=== PATIENT | male | born 1955 | race Caucasian/White ===

== ENCOUNTER → 2018-01-01 | Outpatient (CLI) | payer BC ==
--- NOTE | 2018-01-01 11:47 | ECHOF ---
Referral Reason:R01.1 murmur MEASUREMENTS -------- HEIGHT: 172.7 cm WEIGHT: 90.7 kg BP: 137/68 RVIDd: 3.2 cm (< 3.3) IVSd: 1.5 cm (0.6 - 1.1) LVIDd: 4.7 cm (3.9 - 5.3) LVPWd: 1.3 cm (0.6 - 1.1) IVSs: 1.7 cm LVIDs: 3.3 cm LVPWs: 1.8 cm LA Diam: 3.1 cm (2.7 - 3.8) LAESV Index (A-L): 39.16 ml/m Ao Diam: 3.2 cm (2.0 - 3.7) AV Cusp: 2.2 cm (1.5 - 2.6) EPSS: 0.5 cm MV E Ulices: 1.03 m/s MV DecT: 288 ms MV A Ulices: 1.05 m/s MV E/A Ratio: 0.98 RAP: 5.00 mmHg RVSP: 26.51 mmHg MV EF SLOPE: 75.75 mm/s (70 - 150) MV EXCURSION: 1.51 cm (> 18.000) FINDINGS -------- Sinus rhythm. This was a technically good study. The left ventricular size is normal. There is moderate concentric left ventricular hypertrophy. O verall left ventricular systolic function is normal with, an EF between 55 - 60 %. The right ventricle is normal in size. LA is moderately dilated 34-39 ml/m2 The right atrium is normal in size. The aortic valve is trileaflet and appears structurally normal. Mild mitral regurgitation is present. Mild tricuspid regurgitation present. Right ventricular systolic pressure is normal at < 35 mmHg. Trace/mild (physiologic) pulmonic regurgitation. The aortic root size is normal. Normal inferior vena cava with normal inspiratory collapse consistent with estimated right atrial pre ssure of 5 mmHg. The inferior vena cava is mildly dilated. There is no pericardial effusion. CONCLUSIONS -------- 1. Sinus rhythm. 2. This was a technically good study. 3. The left ventricular size is normal. 4. There is moderate concentric left ventricular hypertrophy. 5. Overall left ventricular systolic function is normal with, an EF between 55 - 60 %. 6. The right ventricle is normal in size. 7. LA is moderately dilated 34-39 ml/m2 8. The right atrium is normal in size. 9. The aortic valve is trileaflet and appears structurally normal. 10. Mild mitral regurgitation is present. 11. Mild tricuspid regurgitation present. 12. Right ventricular systolic pressure is normal at < 35 mmHg. 13. Trace/mild (physiologic) pulmonic regurgitation. 14. The aortic root size is normal. 15. Normal inferior vena cava with normal inspiratory collapse consistent with estimated right atrial pressure of 5 mmHg. 16. The inferior vena cava is mildly dilated. 17. There is no pericardial effusion. [employer]: NORMAN Tim
== END | disposition home or self-care (01) ==
LOC: RADECHMAIN 08:15
PROVIDERS: ATTEND Family Medicine
DX: I08.1 Rheumatic disorders of both mitral and tricuspid valves (principal)
CPT/HCPCS: 93306

== ENCOUNTER 2021-01-11 08:31 | Day surgery (SDC) | payer MEDICARE ==
[2021-01-06 11:30] VITALS: BMI 31.9
[~2021-01-11 08:31] MED LIST: LACTATED RINGERS 1,000 ML IV SCH; LIDOCAINE 1% (10MG/ML) FOR IV START INTRADERMA PRN
[2021-01-11 09:08] VITALS: RESP 16; TEMP 97.6
[2021-01-11] MEDS ORDERED: LIDOCAINE 1% INJ 10MG/ML (20 ML MDV) ONE (09:42)
[2021-01-11] MEDS ORDERED: PROPOFOL 10 MG/ML 20 ML VIAL IV ONE (09:42)
--- NOTE | 2021-01-11 10:01 | P.PCN ---
Date of Procedure: 01/11/21 Procedure(s) Performed: Brief history: Patient is a pleasant 65-year-old white male scheduled for an elective upper endoscopy as well as colonoscopy as a part of evaluation of GERD/intermittent melena and prior history of colon polyps.. He was also noted to have Hemoccult- positive stool. Procedure performed: Esophagogastroduodenoscopy with biopsy Colonoscopy with biopsy Preoperative diagnosis: GERD/melena Hemoccult-positive stool and history of colon polyps Anesthesia: MAC Procedure: After informed consent was obtained from the patient was brought into the endoscopy unit and IV sedation was administered by anesthesia under continuous monitoring. Initially upper endoscopy was done. The Olympus GF 160 video endoscope was inserted inserted into the mouth and esophagus intubated without any difficulty and was gradually advanced into the stomach and duodenum and carefully examined. The bulb and second part of the duodenum appeared normal. The scope was then withdrawn into the stomach adequately insufflated with air and upon careful examination the antrum and mild gastritis and biopsies were done from this area. The body, cardia and fundus appeared normal. The scope was then withdrawn into the esophagus. The GE junction was located at 33 cm to the incisors. There was a moderate size hiatal hernia noted. There was a linear erosions/ulceration noted in the distal esophagus consistent with LA grade C reflux esophagitis.Rest of the esophagus appeared normal. Patient tolerated the procedure well. At this time the patient continued to remain sedation. Initial digital rectal examination was normal. Olympus CF 160 video colonoscope was then inserted into the rectum and gradually advanced to the cecum without any difficulty. Careful examination was performed as the scope was gradually being withdrawn. The prep was excellent. terminal ileum was normal. On the ileocecal valve there was mild mucosal erythema granularity and biopsies were done from this area to evaluate for colitis. The cecum, ascending colon, transverse colon, descending colon, sigmoid colon and rectum appeared normal. at her sigmoid diverticulosis seen. Retroflexion was performed in the rectum and no lesions were noted. Patient tolerated the procedure well. Impression: 1. Upper Endoscopy revealed moderate size hiatal hernia and LA grade C reflux esophagitis 2. Colonoscopy revealed scattered sigmoid diverticulosis and mild patchy area of colitis on the ileocecal valve status post biopsy Recommendations: Findings of this examination were discussed with the patient as well as his family. He was advised to follow with the biopsy results. He can have a repeat screening colonoscopy in 5 years. In the last 2 to the gastroesophageal reflux disease was advised to increase omeprazole to 20 mg twice daily and follow antireflux measures
[2021-01-11 10:18] VITALS: BP 124/63; PULSE 52
== END 2021-01-11 10:50 | disposition home or self-care (01) ==
LOC: ORWHC2ENDO 08:31
PROVIDERS: ATTEND Internal Medicine Gastroenterology
DX: K52.9 Noninfective gastroenteritis and colitis, unspecified (principal); K57.30 Diverticulosis of large intestine without perforation or abscess without bleeding; K21.01 Gastro-esophageal reflux disease with esophagitis, with bleeding; K22.11 Ulcer of esophagus with bleeding; K29.71 Gastritis, unspecified, with bleeding; K44.9 Diaphragmatic hernia without obstruction or gangrene; I10 Essential (primary) hypertension; E78.5 Hyperlipidemia, unspecified; Z86.010 Personal history of colon polyps; Z98.890 Other specified postprocedural states; Z79.899 Other long term (current) drug therapy; Z79.82 Long term (current) use of aspirin; Z96.652 Presence of left artificial knee joint
CPT/HCPCS: 88305; 45380; 43239; J2001; J2704

== ENCOUNTER → 2024-04-02 | Outpatient (CLI) | payer MEDICARE ==
--- NOTE | 2024-04-02 11:35 | XR ---
EXAMINATION TYPE: XR thoracic spine 3 V, XR lumbosacral spine 5 V DATE OF EXAM: 04/02/2024 COMPARISON: NONE HISTORY: 69-year-old male chronic pain, M54.42, M51.35. FINDINGS: Thoracic spine: Mild to moderate degenerative disc disease and endplate spondylosis lower thoracic spine. Vertebral b shaunna heights and alignment appear maintained. 12 rib bearing thoracic vertebral bodies. Some right lat eral bridging endplate spondylosis T9-T11 levels. Lumbar spine: 5 lumbar type vertebral bodies. Hypertrophic facet arthropathy lower lumbar spine, left greater than right. Degenerative grade 1 anterolisthesis L4-L5 and trace grade 1 retrolisthesis T12-L1 and L1-L2. Mild multilevel degenerative disc disease. Some anterior angulation at the sacrococcygeal junction ma y reflect an age-indeterminate tailbone fracture. IMPRESSION: 1. Thoracic spine: [id number] degenerative disc disease lower thoracic spine. No vertebral comp ression collapse or malalignment. 2. Lumbar spine: Hypertrophic facet arthropathy left greater than right. Degenerative grade 1 spondyl olisthesis T12-L1, L1-L2, and L4-L5. No vertebral compression collapse. Mild multilevel degenerative disc disease. Some anterior angulation at the sacrococcygeal junction may reflect an age indeterminat e tailbone fracture. Clinically correlate.
== END | disposition home or self-care (01) ==
LOC: RADXRMAIN 10:15
PROVIDERS: ATTEND Family Medicine
DX: M51.34 Other intervertebral disc degeneration, thoracic region (principal); M51.36 Other intervertebral disc degeneration, lumbar region; M47.816 Spondylosis without myelopathy or radiculopathy, lumbar region; M43.16 Spondylolisthesis, lumbar region; M51.35 Other intervertebral disc degeneration, thoracolumbar region
CPT/HCPCS: 72070; 72110